=== PATIENT | male | born 1990 | race Two or more races ===

== ENCOUNTER 2016-10-23 22:16 | Inpatient (IN) | payer OTHER ==
[~2016-10-23] VITALS: Ht 165.1 cm; Wt 88.9 kg
[~2016-10-23 22:16] MED LIST: ACET325T53 PO; ALLA266C2 TP; ASCO500T9 PO; HYDR-3326 PO; Lactose-Free Food PO; MAG30ORA PO; MAGN400O6 PO; MULT-24 PO; MUPI22OI7; Morphine Sulfate IV; Ondansetron Hcl/Pf IVP; PANT40VI IV; RXVAN XX; SODI473S8 TOP; Silver Sulfadiazine TP; VANC; Zolpidem Tartrate PO
[2016-10-23] MEDS ORDERED: LIDOCAINE 2% JEL UROJET 10 ML MM ONE ×2 (22:44→23:00)
[2016-10-23] MEDS ORDERED: IV NS 0.9% 1,000 ML BAG IV ONE (23:00)
[2016-10-23] MEDS ORDERED: ONDANSETRON HCL/PF 4 MG/2 ML VIAL ONE (23:10)
[2016-10-23] MEDS ORDERED: IV SET PRIMARY 1 EA INFUS.SET MC ONE (23:10)
[2016-10-23] MEDS ORDERED: IV NS 0.9% 1,000 ML ONE (23:10)
[2016-10-23] MEDS ORDERED: MORPHINE SULFATE INJ 4 MG/ML DISP.SYRIN ONE (23:10)
[2016-10-23 23:29] LABS: DIFF TOTAL % 100 %; EOSINOPHILS # (AUTO) 0.5 /CMM (0.0-0.7); EOSINOPHILS % (AUTO) 3.7 % (0.0-6.0); HEMATOCRIT 31 % (39-51); LYMPHOCYTES # (AUTO) 1.5 /CMM (0.8-4.8); LYMPHOCYTES % (AUTO) 12.3 % (20.0-44.0); MEAN CORPUSCULAR HEMOGLOBIN 24 PG (26.0-33.0); MEAN CORPUSCULAR HGB CONC 32 g/dl (31.0-36.0); MEAN CORPUSCULAR VOLUME 75 fL (80-96); MONOCYTES # (AUTO) 0.6 /CMM (0.1-1.30); MONOCYTES % (AUTO) 4.8 % (2.0-12.0); NEUTROPHILS # (AUTO) 9.7 /CMM (1.8-8.9); NEUTROPHILS % (AUTO) 79.2 % (43.0-81.0); PLATELET COUNT (AUTO) 727 /CMM (150-450); WHITE BLOOD COUNT (AUTO) 12.3 K/uL (4.3-11.0)
[2016-10-23] MEDS ORDERED: MORPHINE SULFATE INJ 2 MG/ML DISP.SYRIN IV ONE (23:30)
[2016-10-23] MEDS ORDERED: ONDANSETRON HCL/PF 4 MG/2 ML VIAL IV ONE (23:30)
[2016-10-23 23:31] LABS: CALCIUM, SERUM 8.1 mg/dL (8.5-10.1); CREATININE 0.8 mg/dL (0.6-1.3); POTASSIUM 3.7 mmol/L (3.5-5.1)
[2016-10-23 23:44] LABS: ADD UA MICROSCOPIC YES; KETONES,URINE NEGATIVE (NEGATIVE); LEUKOCYTE ESTERASE ,URINE 3+ (NEGATIVE); PH,URINE 8.5 (5.0-8.0)
[2016-10-24] MEDS ORDERED: IV NS 0.9% 1,000 ML BAG IV ONE
[2016-10-24] MEDS ORDERED: CEFTRIAXONE 1GM BAG (ER ONLY) 1 GM/50 ML PIGGYBACK IV ONE
[2016-10-24 00:02] LABS: ADD URINE CULTURE YES; RBC,URINE 81-100 /HPF (0-2); WBC,URINE TOO NUMEROUS TO COUN /HPF (0-3)
[2016-10-24] MEDS ORDERED: IV NS 0.9% 1,000 ML ONE (00:24)
[2016-10-24] MEDS ORDERED: CEFTRIAXONE 1GM BAG (ER ONLY) 50 ML IV ONE (00:24)
[2016-10-24] MEDS ORDERED: IV SET PRIMARY 1 EA INFUS.SET MC ONE (00:24)
[2016-10-24] MEDS ORDERED: IV NS 0.9% 500 ML BAG IV ONE (01:00)
[2016-10-24] MEDS ORDERED: IV NS 0.9% 500 ML IV ONE (01:09)
[2016-10-24] MEDS ORDERED: MAGNESIUM HYDROXIDE 30 ML UDC PO PRN (02:00)
[2016-10-24] MEDS ORDERED: Z GUARD REMEDY 2 OZ OINT TP PRN ×2 (02:00)
[2016-10-24] MEDS ORDERED: MAG HYDROX/AL HYDROX/SIMETH 30 ML UDC PO PRN ×2 (02:00)
[2016-10-24] MEDS ORDERED: ZOLPIDEM TARTRATE 5 MG TABLET PO PRN (02:00)
[2016-10-24] MEDS ORDERED: PIPERACILLIN /TAZOBACTAM 3.375 G in IV D5W 50 ML IV ONE (02:00)
[2016-10-24] MEDS ORDERED: HYDROCODONE/APAP 5/325MG 1 EACH TABLET PO PRN (02:00)
[2016-10-24] MEDS ORDERED: ONDANSETRON HCL/PF 4 MG/2 ML VIAL IVP PRN (02:00)
[2016-10-24] MEDS ORDERED: ACETAMINOPHEN 325 MG TABLET PO PRN (02:00)
[2016-10-24 02:22] VITALS: BP 98/60
[2016-10-24 02:30] VITALS: BP 98/60
[2016-10-24] MEDS ORDERED: IV SET PRIMARY PUMP SET 1 EA INFUS.SET MC ONE (02:43)
[2016-10-24] MEDS ORDERED: SECONDARY IV SET 1 EA INFUS.SET MC ONE (02:44)
[2016-10-24] MEDS ORDERED: IV D5W 50 ML IV ONE (02:46)
[2016-10-24] MEDS ORDERED: PIPERACILLIN /TAZOBACTAM 3.375 G VIAL IV ONE (02:46)
[2016-10-24] MEDS: IV NS 0.9% 1,000 ML IV PRN ×3 (02:58→22:11)
[2016-10-24] MEDS ORDERED: MORPHINE SULFATE INJ 2 MG/ML DISP.SYRIN ONE (03:36)
[2016-10-24] MEDS: MORPHINE SULFATE INJ 2 MG/ML DISP.SYRIN IV PRN ×5 (03:39→22:13)
[2016-10-24 03:40] VITALS: BP 104/58
[2016-10-24 04:00] VITALS: BP 104/58
[2016-10-24] MEDS: PANTOPRAZOLE 40 MG TABLET.DR PO SCH ×2 (09:24→11:11)
[2016-10-24] MEDS: ASCORBIC ACID 500 MG TABLET PO SCH ×2 (09:26→11:11)
[2016-10-24] MEDS: MUPIROCIN OINT 2% 22 GM TUBE SCH ×3 (10:00→21:00)
[2016-10-24] MEDS: PIPERACILLIN /TAZOBACTAM 3.375 G in IV D5W 50 ML IV SCH ×2 (11:07→17:46)
[2016-10-24] MEDS: MULTIVITAMINS,THERAPEUTIC 1 UDTAB TABLET PO SCH (11:12)
[2016-10-25] MEDS: PIPERACILLIN /TAZOBACTAM 3.375 G in IV D5W 50 ML IV SCH ×4 (00:51→17:01)
[2016-10-25] MEDS: MORPHINE SULFATE INJ 2 MG/ML DISP.SYRIN IV PRN ×5 (04:20→21:32)
[2016-10-25] MEDS: PANTOPRAZOLE 40 MG TABLET.DR PO SCH (07:30)
[2016-10-25] MEDS: MULTIVITAMINS,THERAPEUTIC 1 UDTAB TABLET PO SCH (08:38)
[2016-10-25] MEDS: ASCORBIC ACID 500 MG TABLET PO SCH (08:38)
[2016-10-25] MEDS: MUPIROCIN OINT 2% 22 GM TUBE SCH ×2 (09:00→21:00)
[2016-10-25] MEDS: IV NS 0.9% 1,000 ML IV PRN ×2 (09:58→18:33)
[2016-10-25] MEDS ORDERED: HYDROGEL DRESSING 90 GM TUBE TP PRN (11:30)
[2016-10-25 11:57] LABS: BASOPHILS % (AUTO) 0.5 % (0.0-2.0); DIFF TOTAL % 100 %; EOSINOPHILS # (AUTO) 0.4 /CMM (0.0-0.7); EOSINOPHILS % (AUTO) 4.6 % (0.0-6.0); HEMATOCRIT 28 % (39-51); LYMPHOCYTES # (AUTO) 1.7 /CMM (0.8-4.8); LYMPHOCYTES % (AUTO) 20.8 % (20.0-44.0); MEAN CORPUSCULAR HEMOGLOBIN 24 PG (26.0-33.0); MEAN CORPUSCULAR HGB CONC 32 g/dl (31.0-36.0); MEAN CORPUSCULAR VOLUME 74 fL (80-96); MONOCYTES # (AUTO) 0.3 /CMM (0.1-1.30); MONOCYTES % (AUTO) 4.1 % (2.0-12.0); NEUTROPHILS # (AUTO) 5.7 /CMM (1.8-8.9); PLATELET COUNT (AUTO) 544 /CMM (150-450); WHITE BLOOD COUNT (AUTO) 8.1 K/uL (4.3-11.0)
[2016-10-25] MEDS: HYDROGEL DRESSING 90 GM TUBE TP SCH (12:00)
[2016-10-25 12:14] LABS: CALCIUM, SERUM 8.1 mg/dL (8.5-10.1); CREATININE 0.6 mg/dL (0.6-1.3); PHOSPHORUS 3.2 mg/dL (2.5-4.9); POTASSIUM 4.8 mmol/L (3.5-5.1)
[2016-10-25 20:00] VITALS: BP 115/68
[2016-10-26] MEDS: PIPERACILLIN /TAZOBACTAM 3.375 G in IV D5W 50 ML IV SCH ×4 (00:23→17:06)
[2016-10-26] MEDS: MORPHINE SULFATE INJ 2 MG/ML DISP.SYRIN IV PRN ×5 (01:49→20:32)
[2016-10-26] MEDS: IV NS 0.9% 1,000 ML IV PRN (06:05)
[2016-10-26] MEDS: PANTOPRAZOLE 40 MG TABLET.DR PO SCH (07:30)
[2016-10-26] MEDS: MUPIROCIN OINT 2% 22 GM TUBE SCH (08:14)
[2016-10-26] MEDS: MULTIVITAMINS,THERAPEUTIC 1 UDTAB TABLET PO SCH (09:00)
[2016-10-26] MEDS: ASCORBIC ACID 500 MG TABLET PO SCH (10:10)
[2016-10-26] MEDS: HYDROGEL DRESSING 90 GM TUBE TP SCH (10:11)
[2016-10-26] MEDS ORDERED: IV SET PRIMARY PUMP SET 1 EA INFUS.SET MC ONE (11:45)
[2016-10-26] MEDS ORDERED: SECONDARY IV SET 1 EA INFUS.SET MC ONE (11:45)
[2016-10-26] MEDS ORDERED: IV NS 0.9% 0 ML IV ONE (11:45)
[2016-10-26 12:00] VITALS: BP 117/67
[2016-10-26 16:00] VITALS: BP 103/61
[2016-10-26] MEDS ORDERED: BOOST PLUS FOOD-CHOCLATE 237 ML BOX PO SCH (17:30)
== END 2016-10-26 20:47 | disposition home or self-care (01) | DRG 720 ==
LOC: ER 22:18 → TELE 10-24 02:06 → MED 10-24 20:00
PROVIDERS: ADMIT Internal Medicine; ATTEND Internal Medicine
PROC: 05H533Z Insertion of Infusion Device into Right Subclavian Vein, Percutaneous Approach (ICD-10-PCS; principal; 2016-10-25)
DX: A41.9 Sepsis, unspecified organism (principal); L89.159 Pressure ulcer of sacral region, unspecified stage; D68.59 Other primary thrombophilia; L89.93 Pressure ulcer of unspecified site, stage 3; L97.919 Non-pressure chronic ulcer of unspecified part of right lower leg with unspecified severity; L97.929 Non-pressure chronic ulcer of unspecified part of left lower leg with unspecified severity; I83.019 Varicose veins of right lower extremity with ulcer of unspecified site; I83.029 Varicose veins of left lower extremity with ulcer of unspecified site; N39.0 Urinary tract infection, site not specified; R65.20 Severe sepsis without septic shock; Q05.9 Spina bifida, unspecified; F17.210 Nicotine dependence, cigarettes, uncomplicated; Z59.0 Homelessness; D63.8 Anemia in other chronic diseases classified elsewhere; Z91.19 Patient's noncompliance with other medical treatment and regimen; F12.90 Cannabis use, unspecified, uncomplicated; N31.9 Neuromuscular dysfunction of bladder, unspecified; Z87.440 Personal history of urinary (tract) infections; T83.091A Other mechanical complication of indwelling urethral catheter, initial encounter; Y73.8 Miscellaneous gastroenterology and urology devices associated with adverse incidents, not elsewhere classified; Z98.2 Presence of cerebrospinal fluid drainage device; Z99.3 Dependence on wheelchair
CPT/HCPCS: 36415; 80048-TC; 81000-TC; 83605-TC; 83735-TC; 84100-TC; 85025-TC; 87040-TC; 87081-TC; 87086-TC; 87186-TC; A4606; A6248; A6402; A6403; J0696; J2270; J2405; J2543; J3490; J7030; J7040; J7050; J7060; Z7610

== ENCOUNTER 2017-05-12 23:27 | Emergency (ER) | payer OTHER ==
[~2017-05-12] VITALS: Ht 175.3 cm; Wt 77.1 kg
[~2017-05-12 23:27] MED LIST changes: -HYDR-3326 PO; -Lactose-Free Food PO; -MAG30ORA PO; -MAGN400O6 PO; -Morphine Sulfate IV; -Ondansetron Hcl/Pf IVP; -PANT40VI IV; -RXVAN XX; -VANC; -Zolpidem Tartrate PO
[2017-05-13] MEDS ORDERED: ONDANSETRON HCL/PF 4 MG/2 ML VIAL IVP ONE
[2017-05-13] MEDS ORDERED: MORPHINE SULFATE INJ 2 MG/ML DISP.SYRIN IV ONE
--- NOTE | 2017-05-13 | NUR ---
26 YO MALE BB RA. PT IS ALERT X 3, C/O ABD PAIN, STATES HE THINKS IT MIGHT BE HIS GALLSTONES. PT DS TO ER BED, SKIN WARM AND DR, RR EVEN AND UNLABORED. AWAITING ORDERS FROM PROVIDER, WILL CONTINEU TO MONITOR
[2017-05-13] MEDS ORDERED: ONDANSETRON HCL/PF 4 MG/2 ML VIAL ONE (00:12)
[2017-05-13] MEDS ORDERED: MORPHINE SULFATE INJ 4 MG/ML DISP.SYRIN ONE ×2 (00:12→01:31)
--- NOTE | 2017-05-13 00:30 | NUR ---
22G LEFT FA IV STARTED, BLOOD SAMPLE OBTAINED AND SENT TO LAB. MEDICATED PT ORDERED
[2017-05-13 00:43] LABS: BASOPHILS % (AUTO) 0.2 % (0.0-2.0); EOSINOPHILS # (AUTO) 0.2 /CMM (0.0-0.7); HEMATOCRIT 47 % (39-51); HEMOGLOBIN 15.1 g/dL (13.5-17.5); LYMPHOCYTES # (AUTO) 1.8 /CMM (0.8-4.8); LYMPHOCYTES % (AUTO) 9.2 % (20.0-44.0); MEAN CORPUSCULAR HEMOGLOBIN 22 PG (26.0-33.0); MEAN CORPUSCULAR HGB CONC 32 g/dl (31.0-36.0); MEAN CORPUSCULAR VOLUME 70 fL (80-96); MONOCYTES # (AUTO) 0.9 /CMM (0.1-1.30); MONOCYTES % (AUTO) 4.5 % (2.0-12.0); NEUTROPHILS # (AUTO) 16.2 /CMM (1.8-8.9); NEUTROPHILS % (AUTO) 85.1 % (43.0-81.0); PLATELET COUNT (AUTO) 261 /CMM (150-450); RDW COEFFICIENT OF VARIATION 20.8 (11.5-15.0); RED BLOOD CELL COUNT(AUTO) 6.77 MIL/uL (4.5-6.0)
[2017-05-13 00:50] LABS: CALCIUM, SERUM 8.3 mg/dL (8.5-10.1); CREATININE 0.6 mg/dL (0.6-1.3); POTASSIUM 4.8 mmol/L (3.5-5.1)
[2017-05-13 00:56] LABS: ALBUMIN 3.6 g/dL (3.4-5.0); BILIRUBIN,TOTAL 0.5 mg/dL (0.2-1.0); TOTAL PROTEIN, SERUM 7.8 g/dL (6.4-8.2)
[2017-05-13 01:15] LABS: BAND % (MANUAL) 4 % (0.0-5.0); EOSINOPHILS % (MANUAL) 2 % (0-4); LYMPHOCYTES % (MANUAL) 10 % (16-48); MONOCYTES % (MANUAL) 4 % (0-11.0); NEUTROPHILS % (MANUAL) 80 (42-76)
[2017-05-13] MEDS ORDERED: MORPHINE SULFATE INJ 4 MG/ML DISP.SYRIN IV ONE (01:30)
--- NOTE | 2017-05-13 02:09 | NUR ---
MEDICATED PT ORDERED
[2017-05-13] MEDS ORDERED: TRAMADOL HCL 50 MG TABLET ONE (05:27)
[2017-05-13] MEDS ORDERED: TRAMADOL HCL 50 MG TABLET PO ONE (05:30)
[2017-05-13 05:31] VITALS: BP 121/71
--- NOTE | 2017-05-13 05:31 | NUR ---
IV removed. Catheter intact and site benign. Pressure and 4x4 applied to site. No bleeding noted.
--- NOTE | 2017-05-13 05:31 | NUR ---
Patient discharged to home in stable condition. Written and verbal after care instructions given. Patient verbalizes understanding of instruction.
--- NOTE | 2017-05-13 05:36 | NUR ---
[facility] called - med response; hour for metal pickling equipment operator -[phone] am
--- NOTE | 2017-05-13 07:14 | NUR ---
RECEIVED REPORT FROM MELL FOR TATE
== END 2017-05-13 05:32 | disposition home or self-care (01) ==
LOC: ER 23:29
DX: K80.20 Calculus of gallbladder without cholecystitis without obstruction (principal); D72.829 Elevated white blood cell count, unspecified; Q05.9 Spina bifida, unspecified; Z88.8 Allergy status to other drugs, medicaments and biological substances
CPT/HCPCS: 36415; 76705; 80048; 80076; 83690; 85025; 96374; 96375; 96376; 99285; A4606; J2270 ×2; J2405; Z7610

== ENCOUNTER 2018-04-23 15:32 | Inpatient (IN) | payer OTHER ==
[~2018-04-23] VITALS: Ht 121.9 cm; Wt 64.9 kg
--- NOTE | 2018-04-23 15:32 | NUR ---
BBRA FROM HOME FOR N/V/D X 3 DAYS, EPIGASTRIC DISCOMFORT. PT IS NOTED WITH ORAL TEMP OF 102 'F. TACHYCARDIC 116-120'S. GOWNED AND PLACED ON CONT MONITORING. NAD. WILL CONT TO MONITOR
[2018-04-23] MEDS ORDERED: ACETAMINOPHEN ES 500 MG TABLET ONE (15:52)
[2018-04-23] MEDS ORDERED: ONDANSETRON HCL/PF 4 MG/2 ML VIAL ONE (15:52)
[2018-04-23] MEDS ORDERED: MORPHINE SULFATE INJ 4 MG/ML DISP.SYRIN ONE ×2 (15:59→18:00)
--- NOTE | 2018-04-23 15:59 | NUR ---
IV ACCESS STARTED. BLOOD DRAWN FOR LABS. MEDICATED ORDERED.
[2018-04-23] MEDS ORDERED: ACETAMINOPHEN ES 500 MG TABLET PO ONE (16:00)
[2018-04-23] MEDS ORDERED: ONDANSETRON HCL/PF 4 MG/2 ML VIAL IVP ONE (16:00)
[2018-04-23] MEDS ORDERED: MORPHINE SULFATE INJ 2 MG/ML DISP.SYRIN IV ONE ×2 (16:00→18:00)
[2018-04-23] MEDS ORDERED: IV NS 0.9% 1,000 ML BAG IV ONE (16:00)
[2018-04-23 16:14] LABS: BASOPHILS # (AUTO) 0.3 /CMM (0.0-0.2); BASOPHILS % (AUTO) 1.7 % (0.0-2.0); EOSINOPHILS % (AUTO) 0.1 % (0.0-6.0); HEMATOCRIT 46 % (39-51); HEMOGLOBIN 14.9 g/dL (13.5-17.5); LYMPHOCYTES # (AUTO) 1.1 /CMM (0.8-4.8); LYMPHOCYTES % (AUTO) 6.2 % (20.0-44.0); MEAN CORPUSCULAR HEMOGLOBIN 22 PG (26.0-33.0); MEAN CORPUSCULAR HGB CONC 32 g/dl (31.0-36.0); MEAN CORPUSCULAR VOLUME 69 fL (80-96); MONOCYTES # (AUTO) 1.4 /CMM (0.1-1.30); MONOCYTES % (AUTO) 8.1 % (2.0-12.0); NEUTROPHILS # (AUTO) 14.4 /CMM (1.8-8.9); NEUTROPHILS % (AUTO) 83.9 % (43.0-81.0); PLATELET COUNT (AUTO) 235 /CMM (150-450); RDW COEFFICIENT OF VARIATION 18.6 (11.5-15.0); RED BLOOD CELL COUNT(AUTO) 6.66 MIL/uL (4.5-6.0); WHITE BLOOD COUNT (AUTO) 17.2 K/uL (4.3-11.0)
[2018-04-23 16:15] LABS: INR 1.14 (0.85-1.15)
[2018-04-23 16:18] LABS: ALBUMIN 3.3 g/dL (3.4-5.0); BILIRUBIN,DIRECT 0.2 mg/dL (0.0-0.2); BILIRUBIN,TOTAL 0.7 mg/dL (0.2-1.0); CALCIUM, SERUM 9.2 mg/dL (8.5-10.1); CREATININE 0.8 mg/dL (0.6-1.3); POTASSIUM 3.1 mmol/L (3.5-5.1); TOTAL PROTEIN, SERUM 8.7 g/dL (6.4-8.2)
[2018-04-23 16:28] LABS: APPEARANCE,URINE Slightly Cloudy (CLEAR); BILIRUBIN,URINE Negative (NEGATIVE); BLOOD, URINE Moderate Ery/uL (NEGATIVE); COLOR,URINE Yellow (YELLOW); KETONES,URINE >=160 (NEGATIVE); LEUKOCYTE ESTERASE ,URINE Small (NEGATIVE); NITRITE, URINE Positive (NEGATIVE); PH,URINE 6.5 (5.0-8.0); PROTEIN,URINE 100 mg/dl (NEGATIVE); UGLUCOSE Negative (NEGATIVE)
--- NOTE | 2018-04-23 16:30 | NUR ---
IN/OUT CATH DONE. URINE SPECIMEN OBTAINED AND SENT TO LAB
[2018-04-23 16:43] LABS: BACTERIA,URINE Many /HPF (None Seen); SQUAMOUS EPITHELIAL CELL,UR Few /HPF (None Seen)
[2018-04-23] MEDS ORDERED: PIPERACILLIN /TAZOBACTAM 3.375 G in IV D5W 50 ML IV ONE (17:00)
--- NOTE | 2018-04-23 17:03 | NUR ---
CALLED PHARMACY FOR IV ZOSYN
[2018-04-23] MEDS ORDERED: CT SWABBABLE VALVE TRANS SET 1 EA INFUS.SET MC ONE (17:13)
[2018-04-23] MEDS ORDERED: POTASSIUM CL. PREMIX PERIPHER. 50 ML ONE (17:13)
[2018-04-23] MEDS ORDERED: POTASSIUM CHLORIDE 20 MEQ TAB.PRT.SR PO ONE ×2 (17:13→17:30)
[2018-04-23] MEDS ORDERED: IOHEXOL-300 100 ML VIAL IV ONE (17:13)
[2018-04-23] MEDS ORDERED: IV NS 0.9% 250 ML IV ONE (17:13)
[2018-04-23] MEDS: POTASSIUM CL. PREMIX PERIPHER. 50 ML IV SCH ×2 (17:20→18:30)
--- NOTE | 2018-04-23 19:10 | NUR ---
RE-CALLED THE NURSING COMMERCIAL DECORATOR AND ASKED FOR A BED. NONE GIVEN AT THIS TIME.
--- NOTE | 2018-04-23 19:11 | NUR ---
CALLED Chef Surfing FENCE POST DRIVER WAS PAGED.
--- NOTE | 2018-04-23 20:17 | NUR ---
REPORT GIVEN TO ARABELLA
[2018-04-23 20:30] VITALS: BP 130/75
[2018-04-23 20:40] VITALS: BP 106/66
--- NOTE | 2018-04-23 21:00 | NUR ---
RN NOTES UPPON BODY ASSESSMENT, NOTED PATIENT WITH OLD SCARS ON POSTERIORS BILATERAL UPPER EXTREMETIES EXTENDING TO BUTTOCKS. REFUSED TO TAKE PICTURE AND TO BE ASSESSED THOROUGHLY. OFFERED 3 X EXPLAINED RISKS AND BENEFITS AND STILL REFUSED
[2018-04-23] MEDS ORDERED: ACETAMINOPHEN 325 MG TABLET PO PRN (22:00)
[2018-04-23] MEDS ORDERED: ONDANSETRON HCL/PF 4 MG/2 ML VIAL IVP PRN (22:00)
[2018-04-23] MEDS ORDERED: ZOLPIDEM TARTRATE 5 MG TABLET PO PRN (22:00)
[2018-04-23] MEDS ORDERED: Z GUARD REMEDY 2 OZ OINT TP PRN (22:00)
[2018-04-23] MEDS ORDERED: MAGNESIUM HYDROXIDE 30 ML UDC PO PRN (22:00)
[2018-04-23] MEDS: ENOXAPARIN SODIUM 40 MG/0.4 ML DISP.SYRIN SQ SCH ×2 (23:00→23:14)
[2018-04-23] MEDS ORDERED: MEROPENEM 500 MG VIAL IV ONE (23:07)
[2018-04-23] MEDS: MEROPENEM 500 MG in IV NS 0.9% 50 ML IV SCH (23:11)
[2018-04-23] MEDS: IV NS 0.9% 1,000 ML IV PRN (23:12)
--- NOTE | 2018-04-23 23:27 | NUR ---
RN NOTES PATIENT REFUSED LOVENOX SHOT. EXPLAINED RISKS AND BENEFITS AND OFFERED 3 X AND STILL REFUSED
[2018-04-24] MEDS ORDERED: MEROPENEM 500 MG VIAL IV ONE (05:02)
[2018-04-24] MEDS: MEROPENEM 500 MG in IV NS 0.9% 50 ML IV SCH ×3 (05:08→21:57)
[2018-04-24 07:03] LABS: EOSINOPHILS % (AUTO) 0.1 % (0.0-6.0); HEMATOCRIT 41 % (39-51); HEMOGLOBIN 13.2 g/dL (13.5-17.5); LYMPHOCYTES % (AUTO) 10.2 % (20.0-44.0); MEAN CORPUSCULAR HEMOGLOBIN 23 PG (26.0-33.0); MEAN CORPUSCULAR HGB CONC 32 g/dl (31.0-36.0); MEAN CORPUSCULAR VOLUME 72 fL (80-96); MONOCYTES # (AUTO) 1.1 /CMM (0.1-1.30); MONOCYTES % (AUTO) 10.7 % (2.0-12.0); NEUTROPHILS # (AUTO) 7.8 /CMM (1.8-8.9); PLATELET COUNT (AUTO) 230 /CMM (150-450); RDW COEFFICIENT OF VARIATION 19.5 (11.5-15.0); RED BLOOD CELL COUNT(AUTO) 5.74 MIL/uL (4.5-6.0); WHITE BLOOD COUNT (AUTO) 9.9 K/uL (4.3-11.0)
[2018-04-24 07:16] LABS: CALCIUM, SERUM 8.3 mg/dL (8.5-10.1); CREATININE 0.6 mg/dL (0.6-1.3); MAGNESIUM 1.9 mg/dL (1.8-2.4); PHOSPHORUS 2.1 mg/dL (2.5-4.9); POTASSIUM 3.6 mmol/L (3.5-5.1)
--- NOTE | 2018-04-24 07:40 | NUR ---
ms rn received on bed awake alert,oriented x4 , complaining of head ache at this time, will monitor patient's condition.
[2018-04-24 08:00] VITALS: BP 101/64
--- NOTE | 2018-04-24 08:00 | NUR ---
ms nena aguila 5/325, 1 tab po given for headache 06/03, will evaluate pain after 30 minutes.
[2018-04-24] MEDS: HYDROCODONE/APAP 5/325MG 1 EACH TABLET PO PRN ×2 (08:17→18:31)
--- NOTE | 2018-04-24 08:50 | NUR ---
MS HALEY BREAKFAST SERVED, DUE MEDS GIVEN, REFUSED LOVENOX AT THIS TIME.
[2018-04-24] MEDS: ENOXAPARIN SODIUM 40 MG/0.4 ML DISP.SYRIN SQ SCH (09:00)
--- NOTE | 2018-04-24 10:24 | NUR ---
Social Service consult requested by LISSET Anderson for possible homelessness. Patient is a 27 year old male who was admitted to [facility] for UTI/dehydration. SW met with patient bedside. Pt was awake, alert, and oriented x4. Pt. appeared disheveled. Pt was guarded but cooperative with SW during the assessment. Patient reported that he has been living with his mother for a year at [address] [place] [address]. Pt reported that he is unemployed and has never had a job before. Pt reported that he has no income whatsoever. Pt denied previous or current use of alcohol and tobacco. Patient reported that he smokes marijuana and stated that he "smokes weed everyday since I was 11 years old." Pt denied taking any medications. Pt reported to having very little appetite. Pt denied any psychiatric diagnosis, and denied any symptoms of anxiety and depression. Pt denied having any thought of suicidal ideation. Pt reported to having thoughts of wanting to harm others. When SW asked pt if he has ever hurt anyone he responded by saying "that is for me to know and not for you to find out." SW informed pt that I am available if he has questions or needs resources during his hospital stay.
--- NOTE | 2018-04-24 13:00 | NUR ---
MS RN WAS SEEN BY WOUND DOCTOR, DEBRIDEMENT OF LEFT FOOT DONE.
[2018-04-24] MEDS ORDERED: K PHOS NEUTRAL 250 MG TABLET PO ONE (14:00)
[2018-04-24 16:00] VITALS: BP 115/64
[2018-04-24] MEDS: IV NS 0.9% 1,000 ML IV PRN (18:25)
[2018-04-24 20:00] VITALS: BP 117/68
--- NOTE | 2018-04-24 20:00 | NUR ---
MS ELLEN INITIAL NOTES RECEIVED REPORT FORM AM NURSE WHILE CHECKING THE PT AT THE SAME TIME,. HE'S ON BED WATCHING TV WITH IVF OF NS AT 75ML/HR INFUSING ON HIS RIGHT HAND PATENT AND INTACT. DENIES ANY PAIN AT THI TIME. DRESSING DRY AND INTACT. KEPT HIM WARM AND COMFORTABLE AT AL TIMES. PLACE CALL LIGHT AT REACH.
[2018-04-25] MEDS: IV NS 0.9% 1,000 ML IV PRN (04:30)
[2018-04-25] MEDS: MEROPENEM 500 MG in IV NS 0.9% 50 ML IV SCH ×2 (05:34→13:19)
--- NOTE | 2018-04-25 07:04 | NUR ---
MS ASSOCIATE PROFESSOR COMPUTER SCIENCE CLOSING NOTES PT REMAINS SLEEPING COMFORTABLY IN BED WITHOUT ANY PRN SLEEP MEDS GIVEN. ALL DUE MEDS GIVEN AND ALL NEEDS MET. STABLE ANA THE NIGHT . IVF NS AT 75ML INFUSING AT THIS TIME, PATENT AND INTACT. MULLER TO GRAVITY WITH CLEAR YELLOW OUTPUT NOTED. AND DRAINING WELL. KEPT HIM WARM AND COMFORTABLE AT ALL TIMES. PLACE CALL LIGHT AT REACH. ENDORSE TO AM NURSE FOR CONTINUITY OF CARE.
--- NOTE | 2018-04-25 07:15 | NUR ---
MS/RN INITIAL NOTES RECEIVED PT IN BED, ASLEEP BUT AROUSABLE TO NAME AND LIGHT TOUCH. AFEBRILE. TOLERATING ROOM AIR WELL, NO SOB NOTED. WITH ONGOING IVF NS AT 75 ML/HR INFUSING WELL ON RHAND. NO SIGNS OF INFECTION NOTED. WITH INTACT F/C, DRAINING BY GRAVITY. SAFETY MEASURES IN PLACED. CALL LIGHT WITHIN REACH. WILL CONT TO MONITOR. PER PM NURSE ENDORSEMENT, PT REFUSED AM LABS, WILL OFFER AGAIN LATER.
--- NOTE | 2018-04-25 08:00 | NUR ---
RN NOTES RICKEY KOEHLER REPORTED, PT REFUSED TO VS TAKEN. WILL OFFER AGAIN LATER
[2018-04-25] MEDS: ENOXAPARIN SODIUM 40 MG/0.4 ML DISP.SYRIN SQ SCH (08:37)
--- NOTE | 2018-04-25 09:00 | NUR ---
RN NOTES OFFERED TO CHECK VS AND LOVENOX SQ, PT REFUSED, EXPLAINED RISKS AND BENEFITS. OFFERED X3, PT STILL STRONGLY REFUSED. WILL CONT TO MONITOR
--- NOTE | 2018-04-25 10:00 | NUR ---
RN NOTES SEEN AND EXAMINED BY DR ESCALERA. NOTIFIED MD RE: PT REFUSAL TO AM LABS, LOVENOX SQ, AND VS TAKEN. WITH NO NEW ORDER
[2018-04-25] MEDS ORDERED: CEPH-570 PO (12:13)
--- NOTE | 2018-04-25 16:00 | NUR ---
RN NOTES D/C PT TO HOME IN STABLE CONDITION. TRANSPORTED BY AMBULANCE VIA GURNEY. NO SOB NOTED. NO C/O PAIN. IN NO SIGNS OF ACUTE DISTRESS. D/C INSTRUCTIONS GIVEN, PT VERBALIZED UNDERSTANDING. REPORT GIVEN TO EMT. IV LINE D/C, PLACED PRESSURE DRESSING. NO SIGNS OF BLEEDING/INFECTION NOTED. F/C D/C, PT TOLERATED WELL, ABLE TO URINATE ONCE. SAFETY MEASURES OBSERVED AT ALL TIMES. D/C
[2018-04-26] MEDS ORDERED: HYDROGEL DRESSING 90 GM TUBE TP SCH (09:00)
== END 2018-04-25 16:00 | disposition home or self-care (01) | DRG 720 ==
LOC: ER 15:34 → TELE 21:12 → MED 23:16
PROVIDERS: ADMIT Internal Medicine; ATTEND Internal Medicine
PROC: 0JBR0ZZ Excision of Left Foot Subcutaneous Tissue and Fascia, Open Approach (ICD-10-PCS; principal; 2018-04-24)
DX: A41.9 Sepsis, unspecified organism (principal); E43 Unspecified severe protein-calorie malnutrition; L89.159 Pressure ulcer of sacral region, unspecified stage; L89.624 Pressure ulcer of left heel, stage 4; D68.59 Other primary thrombophilia; Z68.41 Body mass index [BMI] 40.0-44.9, adult; E87.1 Hypo-osmolality and hyponatremia; E66.01 Morbid (severe) obesity due to excess calories; N31.9 Neuromuscular dysfunction of bladder, unspecified; E86.0 Dehydration; E87.6 Hypokalemia; D63.8 Anemia in other chronic diseases classified elsewhere; E66.9 Obesity, unspecified; I87.8 Other specified disorders of veins; N39.0 Urinary tract infection, site not specified; B96.20 Unspecified Escherichia coli [E. coli] as the cause of diseases classified elsewhere; Q05.9 Spina bifida, unspecified; M46.28 Osteomyelitis of vertebra, sacral and sacrococcygeal region; Z99.3 Dependence on wheelchair; F17.210 Nicotine dependence, cigarettes, uncomplicated; F12.90 Cannabis use, unspecified, uncomplicated
CPT/HCPCS: 36415; 73620-TC; 80048-TC; 80061-TC; 80076-TC; 81000-TC; 83605-TC; 83690-TC; 83735-TC; 84100-TC; 85025-TC; 85730-TC; 87040-TC; 87081-TC; 87086-TC; 87186-TC; 93971-TC; A4216; A4606; A6248; A6253; A6402; A6403; J1650; J2185; J2270; J2405; J2543; J3480; J7030; J7050; J7060; Q9967; Z7610

== ENCOUNTER 2018-08-17 11:04 | Inpatient (IN) | payer OTHER ==
[~2018-08-17] VITALS: Ht 152.4 cm; Wt 63.5 kg
[~2018-08-17 11:04] MED LIST changes: -ACET325T53 PO; -ALLA266C2 TP; -ASCO500T9 PO; +CEPH-570 PO; -MULT-24 PO; -MUPI22OI7; -SODI473S8 TOP; -Silver Sulfadiazine TP
--- NOTE | 2018-08-17 11:23 | NUR ---
PT REC'D TO ER VIA EMS HAS HAD MANY VISITS TO ER FOR INFECTIONS C/O PAIN BUTT , LEFG SND FEET FEVER IV [id number] RT AHAND LABS AND CULTURES DONE . PT ABLE TO SELF CATH AT HOME . PT NATE GAINES TO LAB PT MED FOT PAIN MS 4 MG IVP CONT TO MONITOR
[2018-08-17] MEDS ORDERED: CEFTRIAXONE 1GM BAG (ER ONLY) 50 ML IV ONE ×2 (11:30→11:38)
[2018-08-17] MEDS ORDERED: IV NS 0.9% 1,000 ML BAG IV ONE (11:30)
[2018-08-17] MEDS ORDERED: ACETAMINOPHEN ES 500 MG TABLET PO ONE (11:30)
[2018-08-17 11:34] LABS: BASOPHILS % (AUTO) 0.3 % (0.0-2.0); EOSINOPHILS % (AUTO) 0.5 % (0.0-6.0); HEMATOCRIT 35 % (39-51); HEMOGLOBIN 11.8 g/dL (13.5-17.5); LYMPHOCYTES # (AUTO) 1.5 /CMM (0.8-4.8); LYMPHOCYTES % (AUTO) 9.9 % (20.0-44.0); MEAN CORPUSCULAR HGB CONC 34 g/dl (31.0-36.0); MEAN CORPUSCULAR VOLUME 68 fL (80-96); MONOCYTES # (AUTO) 0.7 /CMM (0.1-1.30); MONOCYTES % (AUTO) 4.6 % (2.0-12.0); NEUTROPHILS # (AUTO) 12.8 /CMM (1.8-8.9); NEUTROPHILS % (AUTO) 84.7 % (43.0-81.0); PLATELET COUNT (AUTO) 455 /CMM (150-450); RED BLOOD CELL COUNT(AUTO) 5.17 MIL/uL (4.5-6.0); WHITE BLOOD COUNT (AUTO) 15.1 K/uL (4.3-11.0)
[2018-08-17] MEDS ORDERED: MORPHINE SULFATE INJ 4 MG/ML DISP.SYRIN ONE (11:37)
[2018-08-17] MEDS ORDERED: ACETAMINOPHEN ES 500 MG TABLET ONE (11:38)
[2018-08-17 11:54] LABS: ALANINE AMINOTRANSFERASE 17 U/L (12-78); ALBUMIN 1.9 g/dL (3.4-5.0); ALKALINE PHOSPHATASE 89 U/L (46-116); ASPARTATE AMINOTRANSFERASE 17 U/L (15-37); BILIRUBIN,DIRECT 0.1 mg/dL (0.0-0.2); BILIRUBIN,TOTAL 0.2 mg/dL (0.2-1.0); CALCIUM, SERUM 7.9 mg/dL (8.5-10.1); CARBON DIOXIDE 26 mmol/L (21-32); CHLORIDE 97 mmol/L (98-107); GLUCOSE 107 mg/dL (74-106); POTASSIUM 3.5 mmol/L (3.5-5.1); SODIUM SERUM 134 mmol/L (136-145); TOTAL PROTEIN, SERUM 7.6 g/dL (6.4-8.2); UREA NITROGEN, BLOOD 16 mg/dL (7-18)
[2018-08-17] MEDS ORDERED: MORPHINE SULFATE INJ 2 MG/ML DISP.SYRIN IV ONE (12:00)
--- NOTE | 2018-08-17 12:22 | NUR ---
HX SPIANL BIFIDA WHEEL CHAIR
--- NOTE | 2018-08-17 12:22 | NUR ---
ROCPHIN GIVEN PER MD ORDER
[2018-08-17] MEDS ORDERED: HYDROMORPHONE INJ 0.5 MG/0.5 ML SYRINGE IV ONE (12:30)
[2018-08-17 12:33] LABS: APPEARANCE,URINE Turbid (CLEAR); BILIRUBIN,URINE Negative (NEGATIVE); BLOOD, URINE Large Ery/uL (NEGATIVE); COLOR,URINE Yellow (YELLOW); KETONES,URINE Negative (NEGATIVE); LEUKOCYTE ESTERASE ,URINE Moderate (NEGATIVE); NITRITE, URINE Positive (NEGATIVE); PH,URINE 8.5 (5.0-8.0); PROTEIN,URINE 30 mg/dl (NEGATIVE); UGLUCOSE Negative (NEGATIVE)
[2018-08-17 12:39] LABS: BACTERIA,URINE 3+ /HPF (None Seen); RBC,URINE 21-50 /HPF (0-2); SQUAMOUS EPITHELIAL CELL,UR Few /HPF (None Seen); WBC,URINE 21-50 /HPF (0-3)
[2018-08-17] MEDS ORDERED: HYDROMORPHONE 1 MG/1 ML DISP.SYRIN ONE (12:47)
--- NOTE | 2018-08-17 13:03 | NUR ---
pt given dilaudid 1 mg ivp for pain vss stable transfer to floor
[2018-08-17] MEDS ORDERED: Z GUARD REMEDY 2 OZ OINT TP PRN (13:30)
[2018-08-17] MEDS ORDERED: ONDANSETRON HCL/PF 4 MG/2 ML VIAL IVP PRN (13:30)
[2018-08-17] MEDS ORDERED: ZOLPIDEM TARTRATE 5 MG TABLET PO PRN (13:30)
[2018-08-17] MEDS ORDERED: MAGNESIUM HYDROXIDE 30 ML UDC PO PRN (13:30)
--- NOTE | 2018-08-17 13:30 | NUR ---
REGISTERED ACCOUNT ADMINISTRATOR TO ROOM 306 BED 1 REPORT WAS GIVEN BY PHONE FROM ER NURSE. RECEIVED PT. IN BED, A&OX4. PT. WAS PLACED ON TELE MONITOR READING SINUS TACHYCARDIA 126 BPM. TEMP. 99.6 F. PT. WAS ON IV FLUIDS WITH INTACT IV ACCESS. PT. IS WHEELCHAIR BOUND, AND DID NOT HAVE A WHEELCHAIR WITH HIM PER ER, PT. WAS BROUGHT IN BY AMBULANCE. PT. REFUSED TO HAVE PICTURES TAKEN ON SKIN ASSESSMENT. PT. AGREED TO HAVE WOUNDS EXAMINED AND DRESSING CHANGED BUT STRONGLY REFUSED PICTURES TAKEN. WILL CONTINUE TO ASSESS AND MONITOR.
[2018-08-17 13:59] LABS: LYMPHOCYTES % (MANUAL) 16 % (16-48); MONOCYTES % (MANUAL) 2 % (0-11.0); NEUTROPHILS % (MANUAL) 82 (42-76)
[2018-08-17] MEDS: IV NS 0.9% 1,000 ML IV PRN ×2 (14:46→21:27)
[2018-08-17 15:30] VITALS: BP 104/53
[2018-08-17] MEDS: MORPHINE SULFATE INJ 4 MG/ML DISP.SYRIN IV PRN ×2 (15:38→20:02)
[2018-08-17 16:00] VITALS: BP 107/59
--- NOTE | 2018-08-17 18:00 | NUR ---
PT. STRONGLY REFUSED TO BE CHANGED, AND CLEANED BY THE SCREW SUPERVISOR. PT. WAS EXPLAINED HE NEEDS TO BE CLEANSED SINCE HE HAS BEEN SWEATING AND HIS LINENS ARE SOILED. PT. STARTED TO BECOME AGITATED AND CONTINUE TO STRONGLY REFUSE TO BE CHANGED. CHARGE NURSE WAS MADE AWARE.
[2018-08-17] MEDS: ACETAMINOPHEN 325 MG TABLET PO PRN (18:44)
--- NOTE | 2018-08-17 18:45 | NUR ---
PT.'S WAS TACHYCARDIC ON TELE MONITOR READING ST 160'S. PT.'S TEMP WAS 102.4 F. ICE PACKS WERE PLACED UNDER ARMS, PT. IS ON IV FLUIDS NS RUNNING AT 100 ML/HR, TYLENOL, AND NORCO WAS GIVEN PO. WAS CONTACTED TO DISCUSS PT. CONDITION. PT. IS A&OX4. PER MD CONTINUE WITH ANTIBIOTIC TREATMENT, AND NOW NEW ORDERS GIVEN AT THIS TIME.
[2018-08-17] MEDS: HYDROCODONE/APAP 5/325MG 1 EACH TABLET PO PRN (18:48)
--- NOTE | 2018-08-17 19:15 | NUR ---
RN CLOSING/TELE NOTES PT. IS IN BED A&OX3. BREATHING UNLABORED ON ROOM AIR. TELE MONITOR IS READING SINUS TACHYCARDIA AT 153 BPM. IV FLUIDS RUNNING AT 100 ML/HR. BED IS IN LOWEST, AND LOCKED POSITION. 2 SIDE RAILS UP, AND INSTRUCTED PT. TO USE CALL LIGHT FOR ASSISTANCE. ALL NEEDS MET. WILL ENDORSE REPORT TO NURSE. PT. REQUESTED TO DO AN IN AND OUT CATHETER WITH A SIZE 18 FR. STRAIGHT CATH 18 FR WAS UNAVAILABLE IN [facility], LEFT A MESSAGE FOR CENTRAL SUPPLY. WILL ENDORSE TO NURSE.
[2018-08-17 20:00] VITALS: BP 119/63
--- NOTE | 2018-08-17 20:00 | NUR ---
TELE/RN NOTES RECEIVED PATIENT IN BED, AWAKE, WITHRAWN AND WITH ELEVATED TEMPERATURE OF 103 DEG F COPLAINING OF PAIN AND WITH PULSE RATE AT 155. WILL ADMINISTER PAIN MEDICATION AND OBSERVE AND PROVIDE CARE.
[2018-08-17 21:17] VITALS: BP 119/63
--- NOTE | 2018-08-17 23:24 | NUR ---
TELE/RN NOTES PATIENT REFUSED TO HAVE TELE MONITOR AT THIS TIME, EDUCATED ABOUT BENEFIT, PATIETN VERBALIZED UNDERSTANDING. STATED THAT HE WILL STILL REMOVE IT AGAIN.
--- NOTE | 2018-08-18 01:24 | NUR ---
TELE/RN NOTES PER LAB REPORT PER VERÓNICA PATIENT BLOOD CULTURE PRELIMINARY IS GRAM POSITIVE COCCI IN CHAINS
[2018-08-18] MEDS: MORPHINE SULFATE INJ 4 MG/ML DISP.SYRIN IV PRN ×4 (04:49→22:01)
--- NOTE | 2018-08-18 04:52 | NUR ---
tele/rn notes administered pain medication morphine for severe pain in sacral drew. monitoirng for any changes.
[2018-08-18] MEDS: MAG HYDROX/AL HYDROX/SIMETH 30 ML UDC PO PRN (04:55)
--- NOTE | 2018-08-18 06:56 | NUR ---
TELE/RN CLOSING NOTES PATIENT AWAKE, ALERT X3, ABLE TO VERBALIZE NEEDS, ON PAIN MEDICATION MANAGEMENT, REQUIRE REEDUCATION PATIENT NON COMPLIANT, REFUSE TO HAVE WOUND PICTURES TAKEM, WANTS TO GO HOME, MONITORED FOR ELEVATED FEVER, REQUIRE ANTIBIOTICS,RESPIRATIONS EVEN AND UNLABORED, BED LOCKED WILL MONITOR. WILL ENDORSE TO AM RN FOR TATE
--- NOTE | 2018-08-18 07:45 | NUR ---
JUVENILE COURT LIAISON OPENING NOTES PT. A&O X3, NO S/S OF SOB OR DISTRESS. PT. ABLE TO VERBALIZE NEEDS. WILL CONT. CURRENT PAIN MGMT REGIMEN AND MONITOR PT. FEVER. LEFT CALL LIGHT WITHIN REACH, BED LOCKED.
--- NOTE | 2018-08-18 08:00 | NUR ---
REALTIME CAPTIONER NOTE PT SEEN BY DR. REGAN WITH NEW ORDER TO INSERT MULLER. PT. AGREED WITH MD. WILL ENTER ORDER AND PLACE MULLER.
--- NOTE | 2018-08-18 11:01 | NUR ---
MUSICAL THERAPIST NOTE MULLER INSERTED, TOLERATED WELL, URINE OUTPUT CLEAR.
[2018-08-18 11:02] VITALS: BP 124/72
[2018-08-18 11:24] LABS: BASOPHILS # (AUTO) 0.1 /CMM (0.0-0.2); BASOPHILS % (AUTO) 0.5 % (0.0-2.0); EOSINOPHILS % (AUTO) 0.2 % (0.0-6.0); HEMATOCRIT 33 % (39-51); HEMOGLOBIN 10.5 g/dL (13.5-17.5); LYMPHOCYTES # (AUTO) 2.1 /CMM (0.8-4.8); LYMPHOCYTES % (AUTO) 15.1 % (20.0-44.0); MEAN CORPUSCULAR HGB CONC 32 g/dl (31.0-36.0); MEAN CORPUSCULAR VOLUME 69 fL (80-96); MONOCYTES # (AUTO) 1.6 /CMM (0.1-1.30); MONOCYTES % (AUTO) 11.5 % (2.0-12.0); NEUTROPHILS # (AUTO) 9.9 /CMM (1.8-8.9); NEUTROPHILS % (AUTO) 72.7 % (43.0-81.0); PLATELET COUNT (AUTO) 410 /CMM (150-450); RED BLOOD CELL COUNT(AUTO) 4.78 MIL/uL (4.5-6.0); WHITE BLOOD COUNT (AUTO) 13.6 K/uL (4.3-11.0)
[2018-08-18 11:39] LABS: BAND % (MANUAL) 2 % (0.0-5.0); CALCIUM, SERUM 7.3 mg/dL (8.5-10.1); CREATININE 0.6 mg/dL (0.6-1.3); LYMPHOCYTES % (MANUAL) 17 % (16-48); MAGNESIUM 1.9 mg/dL (1.8-2.4); MONOCYTES % (MANUAL) 9 % (0-11.0); NEUTROPHILS % (MANUAL) 72 (42-76); PHOSPHORUS 3.4 mg/dL (2.5-4.9); POTASSIUM 3.3 mmol/L (3.5-5.1)
[2018-08-18] MEDS: IV NS 0.9% 1,000 ML IV PRN (15:15)
[2018-08-18] MEDS: CEFTRIAXONE 1 G in IV D5W 50 ML IV SCH (15:16)
[2018-08-18 16:00] VITALS: BP 106/69
[2018-08-18] MEDS ORDERED: POTASSIUM CHLORIDE 20 MEQ TAB.PRT.SR PO ONE (17:00)
[2018-08-18] MEDS: ACETAMINOPHEN 325 MG TABLET PO PRN (17:37)
--- NOTE | 2018-08-18 18:37 | NUR ---
MS RN NOTE PT AWAKE, A&O X4, ABLE TO MAKE NEEDS KNOWN. NO SIGNS OF SOB OR DISTRESS, ALL VS STABLE. PT NON-COMPLIANT REFUSING BED BATH AND PILLOWS UNDERNEATH BOTH HEELS. RISKS EXPLAINED AFTER MULTIPLE ATTEMPTS. POTASSIUM REPLACED WITH 40 MG OF K CATHERINE. MULLER TOLERATED WELL WITH ADEQUATE URINE OUTPUT. PAIN MANAGEMENT REGIMEN FOLLOWED ORDERED. BED REMAINS IN LOWEST POSITION AND CALL LIGHT WITHIN REACH. WILL ENDORSE TO NEXT SHIFT.
--- NOTE | 2018-08-18 19:59 | NUR ---
MS/RN OPENING NOTES RECEIVED PATIENT IN BED, AWAKE, ABLE TO VERBALIZE NEEDS, ALERT, ORIENTED X3.SKIN WARM TO TOUCH, NO PAIN OBSERVED AND VERBALIZED, WILL MONITOR.RECEIVED ENDORSEMENT FROM AM RN FOR TATE, ON MULLER CATHETER 16 GAUGE, DRAINING URINE, ABLE TO TAKE PAIN MEDICATION AND WAS GIVEN BEFORE START OF SHIFT BY AM NURSE. TEMPERATURE AT 100.1, ON IV ANTIBIOTIC THERAPHY. WILL MONITOR, SACRAL WOUND, AND RIGHT FOOT WOUND FOR TREATMENT, REFUSE TO HAVE IVF AND WOUND PICTURE.IFORM THE PROS AND BENEFIT BUT ABLE TO DRINK FLUIDS.
[2018-08-18 20:00] VITALS: BP 117/65
--- NOTE | 2018-08-18 22:05 | NUR ---
MS/RN NOTES PATIENT AWAKEN FROM SLEEP AND REPORTED SEVERE PAIN IN SACRAL AREA, REFUSING TO HAVE PHOTO OF HIS WOUND AND DISCUSSED THE IMPORTANCE, LACKING MOTIVATION TO PARTICIPATE WITH PROPER MD ORDER, B.P CHECK AND ABOVE 114 SBP. ALERT, ORIENTED BUT WITH USUAL BEHAVIOR.
[2018-08-19] MEDS: MORPHINE SULFATE INJ 4 MG/ML DISP.SYRIN IV PRN ×4 (04:32→19:43)
--- NOTE | 2018-08-19 04:33 | NUR ---
MS/RN NOTES PAIN MEDICATION REQUESTED FOR SEVERE PAIN IN LOWER BACJ AND VITAL SIGNS CHECK B/P ELEVATES, PULSE RATE AT 120
--- NOTE | 2018-08-19 06:15 | NUR ---
306-1 MS/RN NOTES PATIENT ABLE TO SLEEP DURING THE NIGHT WITH PAIN MEDICATION ADMINISTERED WITH RELIEF, RESPIRATIONS EVEN AND UNLABORED, BED LOCKED, CALL LIGHTS WITHIN REACH, PROVIDED FLUIDS AND REFUSED IV FLUIDS RUNNING AT THIS TIME, WILL CONTINUE TO MONITOR.
--- NOTE | 2018-08-19 07:30 | NUR ---
RN OPENING NOTES PT WAS RECEIVED IN BED AT LOWEST AND LOCKED POSITION WITH SIDE RAILS UP X2, A/O X4, BREATHING EVEN AND UNLABORED ON RA, NO S/S OF PAIN OR DISTRESS NOTED AT THIS TIME, IV IS PATENT AND INTACT, NOTED TO HAVE WOUNDS ON THE LEFT FOOT AND SACRUM, SAFETY PRECAUTIONS IN PLACE, CALL LIGHT WITHIN REACH, WILL MONITOR ACCORDINGLY
--- NOTE | 2018-08-19 09:18 | NUR ---
WOUND CARE CONSULT: PT REFUSED FULL SKIN ASSESSMENT AND PHOTOS. PT AGITATED AND RAISING HIS VOICE TO NURSING STAFF. DEFER WOUND TREATMENT PLAN TO SURGICAL TEAM. ALL SKIN PROTECTION AND PRESSURE ULCER PREVENTION RECOMMENDATIONS DISCUSSED WITH NURSING STAFF. WILL SEE PRN.
[2018-08-19 09:51] LABS: BASOPHILS % (AUTO) 0.2 % (0.0-2.0); EOSINOPHILS % (AUTO) 0.8 % (0.0-6.0); HEMATOCRIT 38 % (39-51); HEMOGLOBIN 12.2 g/dL (13.5-17.5); LYMPHOCYTES # (AUTO) 2.5 /CMM (0.8-4.8); LYMPHOCYTES % (AUTO) 16.8 % (20.0-44.0); MEAN CORPUSCULAR HGB CONC 33 g/dl (31.0-36.0); MEAN CORPUSCULAR VOLUME 70 fL (80-96); MONOCYTES # (AUTO) 1.2 /CMM (0.1-1.30); MONOCYTES % (AUTO) 8.5 % (2.0-12.0); NEUTROPHILS # (AUTO) 10.8 /CMM (1.8-8.9); NEUTROPHILS % (AUTO) 73.7 % (43.0-81.0); PLATELET COUNT (AUTO) 484 /CMM (150-450); RED BLOOD CELL COUNT(AUTO) 5.41 MIL/uL (4.5-6.0); WHITE BLOOD COUNT (AUTO) 14.6 K/uL (4.3-11.0)
[2018-08-19 10:10] LABS: CALCIUM, SERUM 8.7 mg/dL (8.5-10.1); CREATININE 0.7 mg/dL (0.6-1.3); MAGNESIUM 2.1 mg/dL (1.8-2.4); PHOSPHORUS 3.8 mg/dL (2.5-4.9); POTASSIUM 4.3 mmol/L (3.5-5.1)
--- NOTE | 2018-08-19 11:05 | NUR ---
Social service consult requested by HALEY Astorga in wound care due to homelessness. Pt. is a 28 year old male who was admitted to [facility] for sepsis. SW met with pt. bedside. Pt. is familiar with pt. from a previous admission. Pt. appeared disheveled. SW attempted to asses pt., however pt. appears guarded and hostile. Pt. stated " I do not want to talk to any social worker masters." SW to attempt at a later time again.
--- NOTE | 2018-08-19 11:16 | NUR ---
PATIENT REFUSED VITAL SIGNS THIS MORNING AND IS REFUSING TO BE CLEANED AND CHANGED
[2018-08-19] MEDS: CEFTRIAXONE 1 G in IV D5W 50 ML IV SCH (14:21)
[2018-08-19] MEDS: HYDROGEL DRESSING 90 GM TUBE TP SCH (14:30)
--- NOTE | 2018-08-19 18:41 | NUR ---
RN CLOSING NOTES PT IN BED AT LOWEST AND LOCKED POSITION WITH SIDE RAILS UP X2, A/O X4, BREATHING EVEN AND UNLABORED ON RA, NO S/S OF PAIN OR DISTRESS NOTED AT THIS TIME, IV IS PATENT AND INTACT, NOTED TO HAVE WOUNDS ON THE LEFT FOOT AND SACRUM; WOUND DEBRIDEMENT ON LEFT FOOT DONE TODAY, SAFETY PRECAUTIONS IN PLACE, CALL LIGHT WITHIN REACH, ALL NEEDS ATTENDED TO, WILL ENDORSE TO FLUORESCENT LAMP REPLACER FOR CONTINUITY OF CARE
--- NOTE | 2018-08-19 19:36 | NUR ---
RN INITIAL NOTES: RECEIVED REPORT FROM VIVIAN DE LEON, PT IN BED, ALEX, A/O X3, PER REPORT PT BEEN SELECTIVE WITH MEDS AND UNCOOPERATIVE. PT REFUSED ELEVATING HER LEG ON PILLOWS, S/P LEFT FOOT WOUND DEBRIDEMENT 08/19/18 DR CRENSHAW DRESSING C/D/I, NO ACTIVE BLEEDING NOTED, IV ACCESS PATENT AND FLUSHING WELL, INFUSING WITH NS TKO. ON KCI MATTRESS. SAFETY PRECAUTIONS FOR FALL INITIATED, CALL LIGHT IN REACH, WILL CONTINUE MONITORING PT.
[2018-08-19 19:40] VITALS: BP 123/69
[2018-08-19] MEDS: ACETAMINOPHEN 325 MG TABLET PO PRN (19:42)
--- NOTE | 2018-08-19 19:43 | NUR ---
PRN MORPHINE AND TYLENOL: PT C/O SO MUCH PAIN 8/10 ON LEFT FOOT, LEG AND GIP AREA, REQUESTING FOR PAIN MEDICATION, PRN MORPHINE 2MG IVP ADMINISTERED AT THIS TIME, ALSO NOTED TO HAVE FEVER 100.0 ORALLY, RECHECK OBTAINED SAME RESULT 100.0 ORAL, REFUSING COOLING MEASURES STATED IT MAKES HIM UNCOMFORTABLY COLD, EDUCATION PROVIDED TO THE PT, PRN TYLENOL 650MG TAB [id number] AT THIS TIME. WILL CONTINUE TO MONITOR AND REASSESS PT.
[2018-08-19 20:00] VITALS: BP 123/69
--- NOTE | 2018-08-19 20:00 | NUR ---
RN NOTES: MD MADE AWARE OF PT'S HR, PT ASYMPTOMATIC DENIES ANY PALPITATION, HEAD ACHE DIZZINESS OR LIGHT HEADEDNESS, HE STATED ITS NORMAL FOR HIM, PER MD CONTINUE MONITORING PT
--- NOTE | 2018-08-19 22:00 | NUR ---
RN NOTES: OFFERED TO REPOSITION THE PT, PT STATED HE CAN TURN ON HIS OWN AND WILL DO IT LATER. EDUCATION PROVIDED REGARDING IMPORTANCE OF TURNING/REPOSITIONING ESPECIALLY PT ALREADY HAVE PRESSURE ULCER ON SACRAL AREA.
--- NOTE | 2018-08-20 | NUR ---
RN NOTES: OFFERED TO BE REPOSITIONED, BUT PT REFUSED STATED HE WILL DO IT ON HIS OWN LATER
[2018-08-20] MEDS: MORPHINE SULFATE INJ 4 MG/ML DISP.SYRIN IV PRN ×4 (00:49→23:40)
--- NOTE | 2018-08-20 00:49 | NUR ---
PRN MORPHINE: PT C/O 05/03 LEG PAIN AND LEFT HIP PAIN REQUESTING FOR MORPHINE, PRN MORPHINE 2MG IVP ADMINISTERED AT THIS TIME, WILL CONTINUE TO MONITOR AND REASSESS
--- NOTE | 2018-08-20 02:11 | NUR ---
RN NOTES: OFFERED TO BE REPOSITIO BUT PT REFUSED, STATED HE'S COMFORTABLE IN HIS POSITION. EDUCATION PROVIDED AGAIN AT THIS TIME.
--- NOTE | 2018-08-20 06:38 | NUR ---
RN CLOSING NOTES: PT IN BED, AWAKE, REMAINS A/O X4 ON RA RESPIRATION EVEN AND UNLABORED, REFUSED BED BATH AND DRESSING CHANGE. IV ACCESS IN PLACED PATENT AND FLUSHING WELL, ON HL, NO S/S OF IV INFILTRATION NOTED. REMAINS TO REFUSED REPOSITIONING AND TURNING, REFUSED OFFLOADING LEGS AND HEELS. LEFT FOOT DRESSING REMAINS C/D/I, NO ACTIVE BLEEDING NOTED. VS REMAINS STABLE, NEEDS ATTENDED. SAFETY PRECAUTIONS FOR FALL REMAINS ENGAGED, CALL LIGHT IN REACH, WILL ENDORSE TO DAY RN FOR CONTINUITY OF CARE.
--- NOTE | 2018-08-20 07:30 | NUR ---
RN OPENING NOTES RECEIVED PATIENT IN BED RESTING, A/OX3, ABLE TO MAKE NEEDS KNOWN. NO ACUTE DISTRESS, NO SOB. COMPLAINTS OF PAIN AND NAUSEA, WILL ADMINISTER MEDICATIONS ORDERED. KEPT PATIENT SAFE. BED IN LOW/LOCKED POSITION, ON KCI AIR MATTRESS, SIDERAILS UPX2, CALL LIGHT IN REACH. WILL CONTINUE TO MONIOTR ACCORDINGLY.
[2018-08-20 08:00] VITALS: BP 106/68
--- NOTE | 2018-08-20 10:00 | NUR ---
PATIENT AGREED TO SKIN PHOTOS OF THE WOUNDS ONLY. Addendum: 08/20/18 at 1947 by DIANA JURADO WOUND PHOTOS TAKEN AND PLACED IN PATIENT'S CHART
--- NOTE | 2018-08-20 10:35 | NUR ---
ROD was informed by CRMontse Okeefe that pt. continues to refuse plan of care and debridement. ROD filed APS report for self-neglect (APS Intake #[id number]). ROD updated NUZHAT Okeefe regarding the APS report.
[2018-08-20 11:27] LABS: BASOPHILS # (AUTO) 0.1 /CMM (0.0-0.2); BASOPHILS % (AUTO) 0.7 % (0.0-2.0); EOSINOPHILS % (AUTO) 0.4 % (0.0-6.0); HEMATOCRIT 39 % (39-51); HEMOGLOBIN 13.2 g/dL (13.5-17.5); LYMPHOCYTES # (AUTO) 2.8 /CMM (0.8-4.8); MEAN CORPUSCULAR HGB CONC 34 g/dl (31.0-36.0); MEAN CORPUSCULAR VOLUME 68 fL (80-96); MONOCYTES # (AUTO) 0.9 /CMM (0.1-1.30); MONOCYTES % (AUTO) 6.4 % (2.0-12.0); NEUTROPHILS # (AUTO) 10.2 /CMM (1.8-8.9); NEUTROPHILS % (AUTO) 72.5 % (43.0-81.0); PLATELET COUNT (AUTO) 663 /CMM (150-450); RED BLOOD CELL COUNT(AUTO) 5.72 MIL/uL (4.5-6.0); WHITE BLOOD COUNT (AUTO) 14.1 K/uL (4.3-11.0)
[2018-08-20 11:40] LABS: CALCIUM, SERUM 9.3 mg/dL (8.5-10.1); CREATININE 0.8 mg/dL (0.6-1.3); MAGNESIUM 2.5 mg/dL (1.8-2.4); PHOSPHORUS 4.4 mg/dL (2.5-4.9); POTASSIUM 4.3 mmol/L (3.5-5.1)
--- NOTE | 2018-08-20 12:00 | NUR ---
PATIENT REFUSED TO BE TURNED AND REPOSITIONED. PER PATIENT, HE CAN MOVE BY HIMSELF.
[2018-08-20 13:12] LABS: IRON, SERUM 29 ug/dl (50-175); TOTAL IRON BINDING CAPACITY 206 ug/dl (250-450)
[2018-08-20] MEDS: MAG HYDROX/AL HYDROX/SIMETH 30 ML UDC PO PRN ×2 (15:26→23:39)
[2018-08-20] MEDS: HYDROGEL DRESSING 90 GM TUBE TP SCH (15:27)
[2018-08-20 16:00] VITALS: BP 125/66
[2018-08-20] MEDS: PIPERACILLIN /TAZOBACTAM 3.375 G in IV D5W 50 ML IV SCH ×2 (16:31→22:31)
--- NOTE | 2018-08-20 19:05 | NUR ---
MS RN OPENING NOTES Received patient sitting on bed with patent IVF infusing well. Denies pain at this time. Upon shift change, patient agreed to have wound dressing in early head start teacher only if he is awake and not to wake him up. Patient asking for Colace for constipation, explained to patient current meds ordered for constipation is MOM. Patient claimed it is not effective on him, explained to patient MD will be notified of his concern, for the meantime patient agreed to take MOM. Administered MOM as ordered. Call light at bedside. Will continue to monitor the patient accordingly.
--- NOTE | 2018-08-20 19:30 | NUR ---
RN CLOSING NOTES PATIENT IN STABLE CONDITION. ALL NEEDS ATTENDED AND PROVIDED. ALL DUE MEDICATIONS GIVEN ORDERED. WOUND CARE RENDERED. KEPT PATIENT SAFE AND COMFORTABLE. BED IN LOW/LOCKED POSITION, SIDERAILS UPX2, CALL LIGHT IN REACH. ENDORSED TO HALEY CATHERINE FOR TATE
[2018-08-20 20:00] VITALS: BP 126/79
[2018-08-21] MEDS: PIPERACILLIN /TAZOBACTAM 3.375 G in IV D5W 50 ML IV SCH ×2 (03:18→09:16)
--- NOTE | 2018-08-21 06:34 | NUR ---
MS RN CLOSING NOTES Patient asleep on Moody's position with patent peripheral IV line LFA G#20 with NS infusing well @ TKO. Patient refused wound dressing as he does not want to be disturbed when asleep. All due meds given, no ASE noted. On RA, no respiratory distress/SOB noted. Afebrile the whole shift. All needs attended, kept clean dry and comfortable. Call light within easy reach. Endorsed to the next shift.
[2018-08-21 08:00] VITALS: BP 113/66
--- NOTE | 2018-08-21 08:10 | NUR ---
RN OPENING NOTES: PATIENT IN BED, ALERT AND ORIENTED X 4, NO ACUTE DISTRESS, NO SOB. PATIENT REPORTS PAIN. IV LINE IN LFA #20G. PATIENT HAS MULLER CATHETER. KEPT PATIENT SAFE. BED IN LOW/LOCKED POSITION, ON KCI AIR MATTRESS, SIDE RAILS UPX2, CALL LIGHT IN REACH. WILL CONTINUE TO MONITOR FOR SAFETY.
[2018-08-21] MEDS: HYDROGEL DRESSING 90 GM TUBE TP SCH (09:17)
[2018-08-21 16:00] VITALS: BP 103/76
[2018-08-21] MEDS: MORPHINE SULFATE INJ 4 MG/ML DISP.SYRIN IV PRN (16:24)
[2018-08-21] MEDS: PIPERACILLIN /TAZOBACTAM 3.375 G in IV D5W 100 ML IV SCH (17:53)
--- NOTE | 2018-08-21 18:47 | NUR ---
RN CLOSING NOTE: PATIENT IN BED. ALERT AND ORIENTED X4. NO ACUTE DISTRESS. NO SOB. UNLABORED BREATHING. MULLER CATHETER IN PLACE. IV INTACT. BED LOW AND LOCKED. KCI MATTRESS. 2 RAILS UP. CALL LIGHT WITHIN REACH. CONT TO MONITOR FOR SAFETY
--- NOTE | 2018-08-21 19:00 | NUR ---
MS RN OPENING NOTES Received patient A/O x4, on semi-martinez's on bed with BERNADETTE with patent peripheral IV line R wrist G#24, SL. With FC indwelling well with clear yellow urine output. Denies discomfort at this time. On RA, no sob/respiratory distress noted. Afebrile. Kept clean, dry and comfortable. Will continue to monitor accordingly.
[2018-08-21 20:00] VITALS: BP 110/71
[2018-08-21 23:55] LABS: BASOPHILS # (AUTO) 0.1 /CMM (0.0-0.2); BASOPHILS % (AUTO) 0.4 % (0.0-2.0); EOSINOPHILS % (AUTO) 1.9 % (0.0-6.0); HEMATOCRIT 39 % (39-51); HEMOGLOBIN 12.7 g/dL (13.5-17.5); LYMPHOCYTES # (AUTO) 4.3 /CMM (0.8-4.8); LYMPHOCYTES % (AUTO) 31.4 % (20.0-44.0); MEAN CORPUSCULAR HGB CONC 32 g/dl (31.0-36.0); MEAN CORPUSCULAR VOLUME 69 fL (80-96); MONOCYTES # (AUTO) 0.7 /CMM (0.1-1.30); MONOCYTES % (AUTO) 5.2 % (2.0-12.0); NEUTROPHILS # (AUTO) 8.4 /CMM (1.8-8.9); NEUTROPHILS % (AUTO) 61.1 % (43.0-81.0); PLATELET COUNT (AUTO) 538 /CMM (150-450); RED BLOOD CELL COUNT(AUTO) 5.66 MIL/uL (4.5-6.0); WHITE BLOOD COUNT (AUTO) 13.7 K/uL (4.3-11.0)
[2018-08-22] MEDS: PIPERACILLIN /TAZOBACTAM 3.375 G in IV D5W 100 ML IV SCH ×3 (01:17→17:28)
--- NOTE | 2018-08-22 03:30 | NUR ---
MS RN NOTES IV Pump beeping, downstream occlusion. Patient asleep, refused assessment. Notified patient about the problem but refused for management. Turned off IV pump, notified patient for possible reinsertion in AM. Patient did not reply and covered his head with the blanket.
--- NOTE | 2018-08-22 06:38 | NUR ---
MS RN CLOSING NOTES Patient asleep on bed, does not want to be disturbed. Peripheral IV line not patent but patient refused further assessment and management. Due ATB was infused, no ASE noted. Afebrile the whole shift, no new complaints made. Kept bed low and locked, call light with easy reach. Endorsed to the next shift.
[2018-08-22] MEDS: HYDROCODONE/APAP 5/325MG 1 EACH TABLET PO PRN (07:42)
[2018-08-22 08:00] VITALS: BP 114/71
[2018-08-22] MEDS: MORPHINE SULFATE INJ 4 MG/ML DISP.SYRIN IV PRN ×3 (08:19→18:42)
[2018-08-22 08:25] LABS: BASOPHILS % (AUTO) 0.3 % (0.0-2.0); EOSINOPHILS % (AUTO) 1.9 % (0.0-6.0); HEMATOCRIT 36 % (39-51); HEMOGLOBIN 11.8 g/dL (13.5-17.5); LYMPHOCYTES # (AUTO) 3.5 /CMM (0.8-4.8); LYMPHOCYTES % (AUTO) 24.6 % (20.0-44.0); MEAN CORPUSCULAR HGB CONC 33 g/dl (31.0-36.0); MEAN CORPUSCULAR VOLUME 69 fL (80-96); MONOCYTES # (AUTO) 0.8 /CMM (0.1-1.30); MONOCYTES % (AUTO) 5.5 % (2.0-12.0); NEUTROPHILS # (AUTO) 9.7 /CMM (1.8-8.9); NEUTROPHILS % (AUTO) 67.7 % (43.0-81.0); PLATELET COUNT (AUTO) 587 /CMM (150-450); RED BLOOD CELL COUNT(AUTO) 5.27 MIL/uL (4.5-6.0); WHITE BLOOD COUNT (AUTO) 14.3 K/uL (4.3-11.0)
[2018-08-22 08:29] LABS: CREATININE 0.7 mg/dL (0.6-1.3); MAGNESIUM 2.4 mg/dL (1.8-2.4); PHOSPHORUS 4.6 mg/dL (2.5-4.9); POTASSIUM 4.6 mmol/L (3.5-5.1)
[2018-08-22] MEDS: HYDROGEL DRESSING 90 GM TUBE TP SCH (09:12)
[2018-08-22] MEDS: DAKINS HALF STRENGTH (0.25%) 480 ML BOTTLE TOP SCH (09:12)
--- NOTE | 2018-08-22 14:11 | NUR ---
NURSING NOTES PATIENT IN BED, ALERT AND ORIENTED X 4, NO ACUTE DISTRESS, NO SOB. PATIENT REPORTS PAIN. IV LINE IN LFA #20G. PATIENT HAS MULLER CATHETER. KEPT PATIENT SAFE. BED IN LOW/LOCKED POSITION, ON KCI AIR MATTRESS, SIDE RAILS UPX2, CALL LIGHT IN REACH. WILL CONTINUE TO MONITOR FOR SAFETY. CHANGED PATIENT DRESSINGS ON THE SACRUM AND FOOD ORDERED.
[2018-08-22 16:00] VITALS: BP 116/69
[2018-08-22] MEDS: LORAZEPAM 1 MG TABLET PO PRN (17:48)
--- NOTE | 2018-08-22 19:15 | NUR ---
RN OPENING NOTES RECEIVED PATIENT IN BED, ALERT AND ORIENTED X 3, NO SOB NOTED, BREATHING EVEN AND UNLABORED, IN NO DISTRESS AT THIS TIME WITH FAMILY AT BEDSIDE. ALL PATIENT' S NEEDS ATTENDED TO, PLACED CALL LIGHT WITHIN EASY REACH. WILL CONTINUE TO MONITOR PT.
[2018-08-22 20:00] VITALS: BP 112/73
[2018-08-22] MEDS: SULFAMETH/TRIMETH 800/160 MG 1 UDTAB TABLET PO SCH (21:53)
[2018-08-22] MEDS ORDERED: HYDROMORPHONE INJ 0.5 MG/0.5 ML SYRINGE IV PRN (22:30)
[2018-08-23] MEDS: PIPERACILLIN /TAZOBACTAM 3.375 G in IV D5W 100 ML IV SCH ×3 (02:10→18:00)
--- NOTE | 2018-08-23 06:40 | NUR ---
RN CLOSING NOTES PATIENT IN BED, ASLEEP BUT EASILY AROUSABLE. IN NO DISTRESS. SLEPT INTERMITTENTLY THROUGHOUT THE SHIFT, ENCOURAGED TO TURN AND REPOSITION BUT STILL NEEDS REINFROCEMENT. ALL PATIENT'S NEEDS ATTENDED TO, PLACED CALL LIGHT WITHIN EASY REACH. WILL ENDORSE TO AM SHIFT NURSE FOR CONTINUITY OF CARE.
--- NOTE | 2018-08-23 07:38 | NUR ---
RN OPENING NOTES RECEIVED PT. PT IS STABLE AND RESTING IN BED. NO S/S OF RESP DISTRESS/SOB. PT DOES NOT APPEAR TO BE IN PAIN AT THIS TIME. A/OX4. FC IN PLACE AND PATENT. PRESSURE ULCERS NOTED ON LEFT HEEL, S/P WOUND DEBRIDEMENT ON 08/19, AND ON SACRAL. IV ACCESS LOCATED ON R WRIST 24G KVO RATE. SAFET MEASURES IN PLACE3, CALL LIGHT WITHIN REACH. WILL CONTINUE TO MONITOR.
[2018-08-23] MEDS: SULFAMETH/TRIMETH 800/160 MG 1 UDTAB TABLET PO SCH ×2 (08:12→20:14)
[2018-08-23] MEDS: DAKINS HALF STRENGTH (0.25%) 480 ML BOTTLE TOP SCH (08:14)
[2018-08-23] MEDS: HYDROGEL DRESSING 90 GM TUBE TP SCH (08:15)
[2018-08-23 10:01] LABS: BASOPHILS # (AUTO) 0.1 /CMM (0.0-0.2); BASOPHILS % (AUTO) 0.4 % (0.0-2.0); EOSINOPHILS % (AUTO) 1.6 % (0.0-6.0); HEMATOCRIT 36 % (39-51); HEMOGLOBIN 11.7 g/dL (13.5-17.5); LYMPHOCYTES # (AUTO) 3.2 /CMM (0.8-4.8); LYMPHOCYTES % (AUTO) 24.7 % (20.0-44.0); MEAN CORPUSCULAR HGB CONC 32 g/dl (31.0-36.0); MEAN CORPUSCULAR VOLUME 70 fL (80-96); MONOCYTES # (AUTO) 0.6 /CMM (0.1-1.30); MONOCYTES % (AUTO) 4.5 % (2.0-12.0); NEUTROPHILS # (AUTO) 8.8 /CMM (1.8-8.9); NEUTROPHILS % (AUTO) 68.8 % (43.0-81.0); PLATELET COUNT (AUTO) 675 /CMM (150-450); RED BLOOD CELL COUNT(AUTO) 5.19 MIL/uL (4.5-6.0); WHITE BLOOD COUNT (AUTO) 12.7 K/uL (4.3-11.0)
[2018-08-23 10:14] LABS: CALCIUM, SERUM 8.8 mg/dL (8.5-10.1); CREATININE 0.8 mg/dL (0.6-1.3); MAGNESIUM 2.2 mg/dL (1.8-2.4); POTASSIUM 4.2 mmol/L (3.5-5.1)
[2018-08-23] MEDS: HYDROMORPHONE 1 MG/1 ML DISP.SYRIN IV PRN ×2 (11:15→17:44)
[2018-08-23] MEDS ORDERED: Hydrogel Dressing TP (15:58)
[2018-08-23] MEDS ORDERED: SODI480S2 TOP (15:58)
[2018-08-23 16:08] VITALS: BP 111/67
[2018-08-23] MEDS ORDERED: LACTOBACILLUS RHAMNOSUS GG 1 EACH CAP.SPRINK PO SCH (17:00)
--- NOTE | 2018-08-23 18:56 | NUR ---
RN CLOSING NOTE PT TO BE DC HOME TODAY. ALL DC TEACHING PERFORMED. DC INSTRUCTIONS/BELONGINGS SHEET SIGNED COPIED AND PLACED IN CHART. AMBULANCE COST ESTIMATING MANAGER TO BE AT 1915. PT TO BE DC WITH IV IN LEFT WRIST 24G FOR CONT IV ABX THERAPY. BACTRIM PRESCRIPTION CALLED IN TO PREFFERED PHARMACY BY . SAFETY MEASURES IN PLACE, CALL LIGHT WITHIN REACH. WILL ENDORSE TO [facility]USS PULLER HELPER FOR TATE.
[2018-08-23] MEDS: ACETAMINOPHEN 325 MG TABLET PO PRN (19:40)
--- NOTE | 2018-08-23 19:42 | NUR ---
RN OPENING NOTES RECEIVED PATIENT IN BED, READY FOR DISCHARGE, DISCHARGE PACKET AT BEDSIDE. [facility] PRESENT IN UNIT PER VITAL SIGNS, PATIENT'S HEART RATE IS 134 BPM MANUALLY. RECHECKED HEART RATE AND IS 132 BPM. PT DENIES PAIN AT THIS TIME BUT VERBALIZED THAT HE HAS SOME DISCOMFORT. TYLENOL ADMINISTERED ORDERED. WILL CONTINUE TO MONITOR. PER [facility] PERSONNEL, THEY CANNOT ACCEPT PATIENT IF HR IS > 110 BPM.
--- NOTE | 2018-08-23 19:52 | NUR ---
RN NOTES RECHECKED PATIENT'S HEART RATE NOTED TO BE @ 124, CALLED [facility] TO GIVE REPORT ON PATIENT'S STATUS, WAITING FOR CALLBACK. PER [facility], THEY CANNOT RECEIVE PATIENT WITH HR>110 BPM EVEN IF THIS IS PATIENT'S BASELINE. GAVE WILL CALL DISPATCHER TEL # [phone].
[2018-08-23 20:00] VITALS: BP 113/69
[2018-08-23] MEDS: LORAZEPAM 1 MG TABLET PO PRN (20:14)
--- NOTE | 2018-08-23 20:14 | NUR ---
RN NOTE PATIENT ANXIOUS ABOUT DISCHARGE SITUATION, ADMINISTERED ATIVAN PRN ORDERED. WILL CONTINUE TO MONITOR PT.
--- NOTE | 2018-08-23 20:30 | NUR ---
RECHECKED HEART RATE MANUALLY @110 BPM. CALLED [facility] AGAIN TO RELAY PT'S SITUATION. WAITING FOR CALL BACK.
--- NOTE | 2018-08-23 21:00 | NUR ---
PT'S PULSE RATE @ 113 BPM, TAKEN MANUALLY.
--- NOTE | 2018-08-23 21:18 | NUR ---
CALLED [facility] AGAIN. WAITING FOR CALL BACK FROM [employer]IVER.
--- NOTE | 2018-08-23 21:35 | NUR ---
RN NOTE CALLED PT'S MOTHER, ADRIANA, NO ANSWER. WAS ONLY ABLE TO LEAVE A MESSAGE.
--- NOTE | 2018-08-23 21:45 | NUR ---
RN NOTE PT STARTING TO GET FRUSTRATED RE: DISCHARGE, PAGED SURGICAL ASSISTANT CERTIFIED CAN. WAITING FOR CALL BACK.
[2018-08-23] MEDS ORDERED: HYDROMORPHONE 1 MG/1 ML DISP.SYRIN IV ONE (22:00)
--- NOTE | 2018-08-23 22:00 | NUR ---
RN NOTES CAN F[employer]ATION DRILL OPERATOR AT BEDSIDE, SEEN AND EXAMINED THE PATIENT WITH NEW ORDER FOR DILAUDID 1MG IV PUSH X 1 DOSE. WILL CONTINUE TO MONITOR PT.
--- NOTE | 2018-08-23 22:10 | NUR ---
RN NOTES CALLED PT'S MOTHER ONCE MORE, NO ANSWER, LEFT VOICEMAIL. WAITING FOR CALLBACK.
--- NOTE | 2018-08-23 22:35 | NUR ---
RN NOTES RECHECKED PT'S HEART RATE @ 106-114 BPM. WILL CONTINUE TO MONITOR.
--- NOTE | 2018-08-23 22:45 | NUR ---
RN NOTES CALLED D/C TRAP OPERATORHENRIK. PER HENRIK, IF PATIENT WILL CONTINUE WITH DISCHARGE TONIGHT, SOMEONE NEEDS TO BE AT HOME TO RECEIVE PT. INFORMED PT THAT WE ARE UNABLE TO GET A HOLD ON HIS MOTHER. PT CALLED MOTHER, ABLE TO TALK TO ADRIANA VIA PT'S MOBILE PHONE. PER ADRIANA, SHE WILL BE AT HOME TO RECEIVE THE PATIENT. PATIENT AGITATED WITH SITUATION.
--- NOTE | 2018-08-23 23:00 | NUR ---
RN NOTES CALLED [facility] # [phone] AND CALLED FOR AMBULANCE TO TAIL BOARD MAN PATIENT. SPOKE WITH JD AND ETA IS 90 MIN. INFORMED PT REGARDING ETA. PER PT "I DON'T CARE."
--- NOTE | 2018-08-24 01:00 | NUR ---
FIVE PIECE EXPANSION MAKER HAND NOTES PATIENT IN BED, ALERT AND ORIENTED X 4, IN NO ACUTE DISTRESS, NO SOB, BREATHING EVEN AND UNLABORED. [facility] TRANSPORTATION IN UNIT TO MECHANICAL MAINTENANCE TECHNICIAN PATIENT. VITAL SIGNS STABLE AT 126/70, TEMP 98.0, RESPIRATIONS @ 16 BREATHS/MIN, HEART RATE @ 85-100 BPM AND O2 SAT @ 93% IN RA. ALL PATIENT'S BELONGINGS COMPLETE. MULLER CATHETER DRAINING WELL WITH YELLOW URINE. IV PERIPHERAL LINE ON RIGHT WRIST G#24, INTACT AND PATENT AND TO BE USED FOR FURTHER IV ATB THERAPY. PATIENT SAFELY TRANSFERRED FROM BED TO [facility] AND EXITED UNIT ACCOMPANIED BY 2 EXPLOSIVES DETONATOR OF [employer] TRANSPORTATION [employer]. CALLED PT'S MOTHER, ADRIANA AND INFORMED HER THAT PT IS ON HIS WAY HOME. PER ADRIANA, CONFIRMED THAT SHE WILL BE WAITING FOR PT AT HOME.
--- NOTE | 2018-08-28 11:26 | NUR ---
RN NOTES (LATE ENTRY) ENDORSED PT TO MACHINE TAILER. PT WAS IRRATE AND UNHAPPY WITH D/C PLAN. PT NON COMPLIANT AND REFUSED PHOTOS OF WOUND.
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
== END 2018-08-24 01:00 | disposition home health service (06) | DRG 720 ==
LOC: ER 11:06 → TELE 13:01 → MED 08-18 08:50
PROVIDERS: ADMIT Internal Medicine; ATTEND Nurse Practitioner Acute Care
PROC: 0JBR0ZZ Excision of Left Foot Subcutaneous Tissue and Fascia, Open Approach (ICD-10-PCS; principal; 2018-08-19)
DX: A41.9 Sepsis, unspecified organism (principal); N17.0 Acute kidney failure with tubular necrosis; L89.154 Pressure ulcer of sacral region, stage 4; E46 Unspecified protein-calorie malnutrition; E87.2 Acidosis; D68.59 Other primary thrombophilia; E87.1 Hypo-osmolality and hyponatremia; E83.51 Hypocalcemia; L89.324 Pressure ulcer of left buttock, stage 4; L89.314 Pressure ulcer of right buttock, stage 4; L89.624 Pressure ulcer of left heel, stage 4; E44.1 Mild protein-calorie malnutrition; G82.20 Paraplegia, unspecified; N39.0 Urinary tract infection, site not specified; D63.8 Anemia in other chronic diseases classified elsewhere; Q05.9 Spina bifida, unspecified; Z59.0 Homelessness; Z99.3 Dependence on wheelchair; F17.210 Nicotine dependence, cigarettes, uncomplicated; B96.20 Unspecified Escherichia coli [E. coli] as the cause of diseases classified elsewhere; B96.4 Proteus (mirabilis) (morganii) as the cause of diseases classified elsewhere; Z16.12 Extended spectrum beta lactamase (ESBL) resistance; B95.1 Streptococcus, group B, as the cause of diseases classified elsewhere; E86.1 Hypovolemia; I87.8 Other specified disorders of veins; Z68.27 Body mass index [BMI] 27.0-27.9, adult
CPT/HCPCS: 36415; 71045-TC; 80048-TC; 80076-TC; 81000-TC; 83540-TC; 83605-TC; 83735-TC; 84100-TC; 84484-TC; 85025-TC; 85045-TC; 85730-TC; 87040-TC; 87070-TC; 87081-TC; 87086-TC; 87186-TC; 87400; A4606; A6248; A6253; A6402; A6403; G0378; J0696; J1170; J2270; J2405; J2543; J7030; J7040; J7050; J7060; Z7610